=== PATIENT | male | born 1990 | race Hispanic/Latino ===

== ENCOUNTER 2016-08-08 14:11 | Inpatient (IN) | payer MEDICAID ==
[2016-08-08] MEDS ORDERED: Tmp-Smz 800 mg-160 mg DS Tab PO STA (14:24)
--- NOTE | 2016-08-08 14:34 | ED PDOC ---
Arrival/HPI <Fidel Boateng - Last Filed: 08/09/16 05:01> - General Historian: Patient <Elroy Maurer - Last Filed: 08/10/16 15:22> - General Chief Complaint: Psychiatric Evaluation Time Seen by Provider: 08/08/16 14:15 - History of Present Illness Narrative History of Present Illness (Text): 08/08/16 14:27 25 y/o male, no significant pmh, psychiatric history of drug abuse, last tetanus under 2 days ago, c/o depression or suicidal ideation x 1 week. Pt. has been feeling depressed and sad for the past 1 week, feeling suicidal which he cut his wrist yesterday and he was seen at the [facility] as he didn't complete the treatment, eloped from the ER, wants to continue the care at the [facility]. Pt. has no dizziness, no chest pain, no shortness of breath, no numbness or tingling, no difficulty moving the lt. hand/wrist/fingers, no other medical or psychological complaints. (Elroy Maurer) Past Medical History - Provider Review Nursing Documentation Reviewed: Yes - Psychiatric Hx Bipolar Disorder: Yes Hx Substance Use: (OXYCODONE, HEROINE, BENZODIAZIPINES) <Elroy Maurer - Last Filed: 08/10/16 15:22> Family/Social History - Physician Review Nursing Documentation Reviewed: Yes Family/Social History: Unknown Family HX Smoking Status: Heavy Smoker > 10 Cigarettes Daily Hx Alcohol Use: No Hx Substance Use: (OXYCODONE, HEROINE, BENZODIAZIPINES) <Elroy Maurer - Last Filed: 08/10/16 15:22> Allergies/Home Meds <Fidel Boateng - Last Filed: 08/09/16 05:01> <Elroy Maurer - Last Filed: 08/10/16 15:22> Allergies/Adverse Reactions: Allergies No Known Allergies Allergy (Verified 08/09/16 08:23) Home Medications: Home Meds Medication Instructions Recorded Confirmed No Known Home Med 08/08/16 08/09/16 Review of Systems - Review of Systems Constitutional: absent: Fatigue, Fevers Eyes: absent: Vision Changes ENT: absent: Hearing Changes Respiratory: absent: SOB, Cough Cardiovascular: absent: Chest Pain Gastrointestinal: absent: Abdominal Pain, Diarrhea, Nausea, Vomiting Skin: Laceration (Lt. wrist visible laceration). absent: Rash, Pruritis, Skin Lesions, Abscess, Ulcer, Cellulitis Neurological: absent: Headache, Dizziness, Focal Weakness, Gait Changes <Elroy Maurer - Last Filed: 08/10/16 15:22> Physical Exam Vital Signs Reviewed: Yes Temperature: Afebrile Blood Pressure: Normal Pulse: Regular Respiratory Rate: Normal Appearance: Positive for: Well-Appearing, Non-Toxic, Comfortable Pain Distress: None Mental Status: Positive for: Alert and Oriented X 3 - Systems Exam Head: Present: Atraumatic, Normocephalic Pupils: Present: PERRL Extroacular Muscles: Present: EOMI Conjunctiva: Present: Normal Mouth: Present: Moist Mucous Membranes Neck: Present: Normal Range of Motion Respiratory/Chest: Present: Clear to Auscultation, Good Air Exchange. No: Respiratory Distress, Accessory Muscle Use Cardiovascular: Present: Regular Rate and Rhythm, Normal S1, S2. No: Murmurs Abdomen: Present: Normal Bowel Sounds. No: Tenderness, Distention, Peritoneal Signs Back: Present: Normal Inspection Upper Extremity: Present: Normal Inspection. No: Cyanosis, Edema Lower Extremity: Present: Normal Inspection. No: Edema Neurological: Present: GCS=15, Speech Normal. No: Motor Func Grossly Intact, Gait Normal, Memory Normal Skin: Present: Warm, Dry, Rashes (Lt. wrist region visible approx. 3cm healed wound with 7 ruby, lt. hand dorsum visible needle garcia from IV drug abuse but no signs of infection. ), Normal Color Psychiatric: Present: Alert, Oriented x 3, Normal Insight, Normal Concentration <Elroy Maurer - Last Filed: 08/10/16 15:22> Vital Signs Temp Pulse Resp BP Pulse Ox 08/09/16 03:29 98.1 F 67 17 113/74 98 08/08/16 14:15 98.6 F 87 16 124/84 99 08/08/16 14:12 98.6 F 87 16 124/84 99 Medical Decision Making <Fidel Boateng - Last Filed: 08/09/16 05:01> - Lab Interpretations I have reviewed the lab results: Yes Interpretation: Abnormal lab values (+drug abuse) - RAD Interpretation Power Bender Operator: Radiologist - EKG Interpretation Interpreted by ED Physician: Yes Type: 12 lead EKG Comparison: No previous EKG avail. <Elroy Maurer - Last Filed: 08/10/16 15:22> ED Course and Treatment: 08/09/16 05:01 Pt re-evaluated by PES screener, pt agrees to sign for admission to [facility] psychiatric floor. Pt will be admitted for bipolar disorder under Dr. Alonzo's service. (Fidel Boateng) 08/08/16 14:25 -Labs/ua/uds -ekg/chest x-ray -keflex and bactrim ds ordered for the patient for the stapled year -wound irrigated with normal saline, clean with betadine, bacitracin and gauze dressing, elliot, wound check and dressing change performed by me. -One on one -PES paged and aware of the patient pending for their evaluation. 08/08/16 17:32 -NSR @ 83 BPM, no ST elevation or depression, no T wave inversion, compared with previous ekg. -Chest xray show no active disease -Labs show no acute findings -UA show no UTI -UDS show +papo/+cocaine/+methadone -Pt. is medically clear and stable for the PES evaluation 08/08/16 19:35 -Pt. evaluated by the [facility], spoke to psychiatrist diagnostic cardiac sonographer Dr. Tanisha Miller. Pt. refused to sign in and to accept the full psychiatric care, not stable to be discharge home yet due to he needs to be screened by the [facility] PES. All paper works faxed by [facility] Rondon to the [facility] 08/08/16 20:55 -Case sign out to the incoming ER attending Dr. Boateng and we discussed about the case together, he will follow up the transfer to the [facility] (Elroy Maurer) - Lab Interpretations Lab Results: 08/08/16 14:00 08/08/16 14:00 Lab Results 08/08/16 16:10: Urine Opiates Screen Positive H, Urine Methadone Screen Positive H, Ur Barbiturates Screen Negative, Ur Phencyclidine Scrn Negative, Ur Amphetamines Screen Negative, U Benzodiazepines Scrn Positive H, U Oth Cocaine Metabols Positive H, U Cannabinoids Screen Negative 08/08/16 16:10: Urine Color Light yellow, Urine Appearance Clear, Urine pH 6.5, Ur Specific [place] 1.010, Urine Protein Negative, Urine Glucose (UA) Negative, Urine Ketones Negative, Urine Blood Negative, Urine Nitrate Negative, Urine Bilirubin Negative, Urine Urobilinogen 0.2, Ur Leukocyte Esterase Negative 08/08/16 14:00: Alcohol, Quantitative < 10 08/08/16 14:00: Salicylates < 1 L, Acetaminophen < 10.0 L 08/08/16 14:00: Sodium 139, Potassium 4.1, Chloride 104, Carbon Dioxide 27, Anion Gap 12, BUN 9, Creatinine 0.7, Est GFR ( Amer) > 60, Est GFR (Non- Af Amer) > 60, Random Glucose 94, Calcium 8.9, Total Bilirubin 0.3, AST 46, ALT 49, Alkaline Phosphatase 116, Total Protein 7.2, Albumin 3.7, Globulin 3.5, Albumin/Globulin Ratio 1.1 08/08/16 14:00: WBC 8.8, RBC 4.22, Hgb 14.6, Hct 42.0, MCV 99.5, MCH 34.6, MCHC 34.8, RDW 11.8, Plt Count 174, MPV 10.0, Gran % 59.5, Lymph % (Auto) 23.5, Branch % (Auto) 10.4 H, Eos % (Auto) 6.3 H, Baso % (Auto) 0.3, Gran # 5.23, Lymph # 2.1 , Branch # 0.9 H, Eos # 0.6, Baso # 0.03 - RAD Interpretation Radiology Orders: 08/08/16 14:23 CHEST PORTABLE [RAD] Stat no active disease (Elroy Maurer) - EKG Interpretation EKG Interpretation (Text): 08/08/16 14:42 NSR @ 83 BPM, no ST elevation or depression, no T wave inversion, compared with previous ekg. (Elroy Maurer) - Medication Orders Current Medication Orders: Discontinued Medications Acetaminophen (Tylenol 325mg Tab) 650 mg PO Q4H PRN PRN Reason: Pain, Mild (1-3) Al Hydrox/Mg Hydrox/Simethicone (Maalox Plus 30 Ml) 30 ml PO DAILY PRN PRN Reason: Upset Stomach Cephalexin Monohydrate (Keflex) 500 mg PO STAT STA PRN Reason: Protocol Stop: 08/08/16 14:24 Last Admin: 08/08/16 14:58 Dose: 500 mg Magnesium Hydroxide (Milk Of Magnesia) 30 ml PO DAILY PRN PRN Reason: Constipation Trimethoprim/Sulfamethoxazole (Bactrim Ds Tab) 1 tab PO STAT STA PRN Reason: Protocol Stop: 08/08/16 14:25 Last Admin: 08/08/16 14:58 Dose: 1 tab Ziprasidone (Geodon Inj) 20 mg IM Q6H PRN; Protocol PRN Reason: Agitation - PA / SOLID PLASTERER / Resident Statement GIANLUCA has reviewed & agrees with the documentation as recorded. GIANLUCA has examined the patient and agrees with the treatment plan. <Fidel Boateng - Last Filed: 08/09/16 05:01> - PA / SOLID PLASTERER / Resident Statement GIANLUCA has reviewed & agrees with the documentation as recorded. <Elroy Maurer - Last Filed: 08/10/16 15:22> Disposition/Present on Arrival - Present on Arrival Any Indicators Present on Arrival: No History of DVT/PE: No History of Uncontrolled Diabetes: No Urinary Catheter: No History of Decub. Ulcer: No History Surgical Site Infection Following: None - Disposition Have Diagnosis and Disposition been Completed?: Yes Disposition Time: 05:00 Patient Plan: Admission <Fidel Boateng - Last Filed: 08/09/16 05:01> - Present on Arrival Any Indicators Present on Arrival: No History of DVT/PE: No History of Uncontrolled Diabetes: No Urinary Catheter: No History of Decub. Ulcer: No History Surgical Site Infection Following: None - Disposition Have Diagnosis and Disposition been Completed?: Yes Disposition Time: 17:32 <Elroy Maurer - Last Filed: 08/10/16 15:22> - Disposition Diagnosis: Wrist laceration, Drug abuse, Suicidal ideation, Agitation, Bipolar disorder Disposition: HOSPITALIZED Condition: GOOD
--- NOTE | 2016-08-08 14:57 | RAD ---
HISTORY: medical clearance COMPARISON: No prior. FINDINGS: LUNGS: No active pulmonary disease. Exam rotated toward the right previous in a prominent anterior right 1st rib seen on end over the right upper lung zone. No suspect pulmonary infiltrate PLEURA: No significant pleural effusion identified, no pneumothorax apparent. CARDIOVASCULAR: Normal. OSSEOUS STRUCTURES: No significant abnormalities. VISUALIZED UPPER ABDOMEN: Normal. OTHER FINDINGS: None. IMPRESSION: No active disease.
[2016-08-08 15:50] LABS: ADD MANUAL DIFF? NO
[2016-08-08 15:56] LABS: BASO # 0.03 K/mm3 (0.0-2.0); BASO % 0.3 % (0.0-3.0); EOS # 0.6 (0.0-0.7); EOS % 6.3 % (1.5-5.0); GRAN # 5.23 (1.4-6.5); GRAN % 59.5 % (50.0-68.0); LYMPH # 2.1 (1.2-3.4); LYMPH % 23.5 % (22.0-35.0); MEAN CELL VOLUME 99.5 fL (80.0-105.0); MEAN CORPUSCULAR HEMOGLOBIN 34.6 pg (25.0-35.0); MEAN CORPUSCULAR HGB CONC 34.8 g/dl (31.0-37.0); MONO # 0.9 (0.1-0.6); MONO % 10.4 % (1.0-6.0); PLATELET COUNT 174 10^3/uL (120.0-450.0); RED CELL DISTRIBUTION WIDTH 11.8 % (11.5-14.5); WHITE BLOOD COUNT 8.8 10^3/ul (4.5-11.0)
[2016-08-08 16:18] LABS: ALB/GLOB RATIO 1.1 (1.1-1.8); ALKALINE PHOSPHATASE 116 U/L (38-133); ALT/SGPT 49 U/L (7-56); AST/SGOT 46 U/L (15-59); BILIRUBIN,TOTAL 0.3 mg/dL (0.2-1.3); BLOOD UREA NITROGEN 9 mg/dL (7-21); CALCIUM 8.9 mg/dL (8.4-10.5); CARBON DIOXIDE 27 mmol/L (21-33); CHLORIDE 104 mmol/L (98-107); GFR AFRICAN-AMERICAN > 60; GLUCOSE,RANDOM 94 mg/dL (70-110); POTASSIUM 4.1 mmol/L (3.6-5.0); SODIUM 139 mmol/L (132-148); TOTAL PROTEIN 7.2 g/dL (5.8-8.3)
[2016-08-08 16:31] LABS: PH,URINE 6.5 (4.7-8.0); URINE BILIRUBIN NEGATIVE (NEGATIVE); URINE BLOOD NEGATIVE (NEGATIVE); URINE GLUCOSE (UA) NEGATIVE (NEGATIVE); URINE KETONE NEGATIVE (NEGATIVE); URINE LEUKOCYTE ESTERASE NEGATIVE Leu/uL (NEGATIVE); URINE PROTEIN NEGATIVE mg/dL (<30 mg/dL); URINE UROBILINOGEN 0.2 E.U./dL (<1 E.U./dL)
[2016-08-08 16:34] LABS: URINE APPEARANCE CLEAR (CLEAR); URINE COLOR LIGHT YELLOW (YELLOW)
[2016-08-09 03:30] VITALS: TEMP 98.1; O2SAT 98
[2016-08-09] MEDS ORDERED: Alum-Mag Hydrox-Simethicone Susp (30 mL) PO PRN (05:40)
[2016-08-09] MEDS ORDERED: Magnesium Hydroxide Susp 30 ml UD PO PRN (05:40)
[2016-08-09 06:44] VITALS: BP 119/69; PULSE 63; RESP 20
--- NOTE | 2016-08-09 12:39 | CON ---
DATE: 08/09/2016 HISTORY OF PRESENT ILLNESS: I saw the patient on the psychiatric floor. He is here because he had s ome issues of drug abuse and some question of being bipolar, but I do not think that is true. He tel ls me that he does not want to go to skilled nursing and he cut his wrists, on the left wrist gently so that the y would take him to the hospital. Otherwise, he would have had to go to skilled nursing 3-1/2 years because he was supposed to be on no drugs and he was going to have a positive test and he knew that, so he did t his to get to the psych floor so he did not have to go to skilled nursing with the police. He is a 25-year-old man with history of drug abuse. He is supposed to be in a rehab situation. He faked depression and suicide situation with cutting his left wrist gently to avoid being caught from doing drugs and now niles tate is in the psychiatric floor at [facility] where he already signed a 48. SOCIAL HISTORY: He has a history of oxycodone, heroin, benzodiazepine abuse, cocaine. He still smok es. He denies alcohol at this time. ALLERGIES: No known drug allergies. MEDICATIONS: Does not take any medications. FAMILY HISTORY: Does not know family history. PAST SURGICAL HISTORY: He had his tonsils out. REVIEW OF SYSTEMS: No vision changes, no hearing changes, no headaches, no dizziness. No sore throa t. No neck pain, no shortness of breath, no cough, no congestion, no cold, no chest pain, no palpita tions, no problems in his chest. No abdominal pain, nausea, vomiting, constipation or diarrhea. No edema of the legs. He can move all 4 extremities. No headache, no dizziness, no focal weakness. No gait problems. Does have left wrist visual laceration, it is small, does not look infected. PHYSICAL EXAMINATION: VITAL SIGNS: He has a 98.1 temp, 63 pulse, 119/69 blood pressure, 20 respiratory rate, 98% O2 sat on room air. HEENT: Head is atraumatic, normocephalic. Extraocular muscles are intact. Pupils equal, reactive t o light. Throat is moist, no erythema. NECK: Supple, no JVD. HEART: Regular rate. LUNGS: Have decreased breath sounds, but clear to auscultation. No rhonchi, wheezes or rales. ABDOMEN: Soft, nontender, positive bowel sounds. EXTREMITIES: Have no edema. NEUROLOGIC: He is alert and oriented x 3. GCS is 15. Speech is normal. Cranial nerves II-XII sofy sly intact. He moves all 4 extremities. He can follow my finger in an H sign with his vision. He c an look up, look down, he can close his eyes tight. He could smile, stick out his tongue midline. N o appreciable neurological issues at this time. There is a left wrist 3 cm laceration with ruby in place where he attempted to commit suicide, cadence ch he said he did that just so he would not have to go to skilled nursing. There are IV drug garcia on his arms. Nonpalpable lymphadenopathy appreciated. Thyroid is midline. LABORATORY DATA: He has a urine drug screen positive for opiates, positive for methadone, positive f or benzodiazepines, positive for cocaine. Urine itself is clean. He has a 139 sodium, potassium is 4.1, BUN 9, creatinine 0.7, GFR is greater than 60, sugar is 94, calcium is 8.9, total bili is 0.3, A ST is 46, ALT is 49, alk phos 116, total protein 7.2, albumin 3.7, globulin 3.5. White count is 8.8, hemoglobin 14.6, hematocrit 42, platelets are 174. He had a chest x-ray, which showed no acute dise ase. He is on the psychiatric floor for drug abuse, questionable bipolar versus trying to avoid going to [facility]. He signed a 48 hour. Medically I will follow him. He has got left wrist laceration. I discus sed not doing drugs anymore, so he could have a nice life. He looked at me like it was the first viviana e he heard it. Hopefully he will do well, as per psychiatry, we will follow this patient. Jerry Johnson DO cc: [id number] TT: 08/09/2016 12:38:33 Confirmation # [id number] Dictation # [id number] luis alfredo
--- NOTE | 2016-08-09 15:17 | PCM.PSYCH ---
Initial Psychiatric Evaluation - Initial Psychiatric Evaluation Type of Admission: Voluntary Legal Status: Capacity (patient has capacity to sign concent for tx.) Chief Complaint (in patient's own words): "I wanted to avoid incarceration....." Patient's Reaction to Hospitalization: pt was admitted for evaluation of depressive symptoms and possible suicidal ideation. History of Present Illness and Precipitating Events: shortly pt is 25yo male, no previous psych h/o, pt is under probation for weapon (pt did not want to disclose it), h/o polysubstance abuse and dependence. pt brought himself to [facility], looking for admission. initially pt presented to be "suicidal". pt [place] [facility] was found to be not committable, pt decided to sign into psych unit here in [place], as soon pt got to the floor, submitted 48hr notice. pt was seen with medical student, medical laboratory technologist, ANDREA, this teletypewriter installer. pt presented to be calm, cooperative, socially appropriate. Pt has antisocial traits, but was very honest about the circumstanses of his admission. pt said he is under probation for 18months for possessing a weapon (did not want to disclose details), pt said [facility], pt was released under probation, currently his UDS checked randomly but as per Court pt has to be clean and sober in order to be not incarcerated again. Pt said he was sober for 10months, but relapsed on drugs on this 08/06/16, I google how to cut my wrist, I checked where my arteries are in order to avoid it", pt has longitudinal cut (about 4cm) scar with about 7 ruby which was done in [facility] [place]. as per report "pt eloped from the [facility]", but as per pt "it took so long for them to evaluate me, I decided to leave, they came and I signed AMA paper" (pt did not eloped). pt said that his mother checked voicemails and now pt will have a new senior major gifts officer, pt also got to know that next UDS will be checked next Saturday, "I feel happy about it, most likely my urine will be clean". pt also made statement "if I would know that all I need to say that I am suicidal and not act like one, I will defiantly do so, I did not want to , I just wanted to be admitted and not to be sentenced in [facility]...". Pt has strong antisocial traits and not realizing that he is using system and he is a liar. pt denied being depressed, denied thoughts of harming self or others. pt reported to have good appetite and sleep. pt denied feeling anxious. pt has h/o addiction to the pain killers, using heroin IV and snorting, pt also has addiction to benzos. last use was saturday. Pt has sobriety for 10months, relapsed on drugs this Saturday. pt was going to [facility] addiction program, was graduated to once a week program, was on IM vivitrol but due to his insurance issues, was not able to have it. pt gave permission to speak to his mother, see SW note for more detailed info. Pt's mother said that pt did not verbalized thoughts of harming self or others, as per mother pt is safe to be discharged. mother also reported that pt wanted to be admitted in order to avoid incarceration. pt submitted 48hr notice. pt does not want to be on meds. pt will be d/c ama. family h/o: pt's cousin hang himself pt smokes abut a pack a day. counseling provided. as per medical team pt needs to come back in two weeks to remove ruby. 08/08/16 14:00 08/08/16 14:00 Lab Results 08/09/16 08:30: TSH 3rd Generation 1.36 08/09/16 08:30: Fasting Glucose 90 08/08/16 16:10: Urine Opiates Screen Positive H, Urine Methadone Screen Positive H, Ur Barbiturates Screen Negative, Ur Phencyclidine Scrn Negative, Ur Amphetamines Screen Negative, U Benzodiazepines Scrn Positive H, U Oth Cocaine Metabols Positive H, U Cannabinoids Screen Negative 08/08/16 16:10: Urine Color Light yellow, Urine Appearance Clear, Urine pH 6.5, Ur Specific [place] 1.010, Urine Protein Negative, Urine Glucose (UA) Negative, Urine Ketones Negative, Urine Blood Negative, Urine Nitrate Negative, Urine Bilirubin Negative, Urine Urobilinogen 0.2, Ur Leukocyte Esterase Negative 08/08/16 14:00: Alcohol, Quantitative < 10 08/08/16 14:00: Salicylates < 1 L, Acetaminophen < 10.0 L 08/08/16 14:00: Sodium 139, Potassium 4.1, Chloride 104, Carbon Dioxide 27, Anion Gap 12, BUN 9, Creatinine 0.7, Est GFR ( Amer) > 60, Est GFR (Non- Af Amer) > 60, Random Glucose 94, Calcium 8.9, Total Bilirubin 0.3, AST 46, ALT 49, Alkaline Phosphatase 116, Total Protein 7.2, Albumin 3.7, Globulin 3.5, Albumin/Globulin Ratio 1.1 08/08/16 14:00: WBC 8.8, RBC 4.22, Hgb 14.6, Hct 42.0, MCV 99.5, MCH 34.6, MCHC 34.8, RDW 11.8, Plt Count 174, MPV 10.0, Gran % 59.5, Lymph % (Auto) 23.5, [place] % (Auto) 10.4 H, Eos % (Auto) 6.3 H, Baso % (Auto) 0.3, Gran # 5.23, Lymph # 2.1 , [place] # 0.9 H, Eos # 0.6, Baso # 0.03 Vital Signs Temp Pulse Resp BP Pulse Ox 08/09/16 07:53 98.1 F 63 20 119/69 08/09/16 06:43 98.1 F 63 20 119/69 08/09/16 03:29 98.1 F 67 17 113/74 98 08/08/16 14:15 98.6 F 87 16 124/84 99 08/08/16 14:12 98.6 F 87 16 124/84 99 Current Medications: Active Medications Generic Name Dose Route Start Last Admin Trade Name Freq PRN Reason Stop Dose Admin Acetaminophen 650 mg 08/09/16 05:40 Tylenol 325mg Tab PO Q4H PRN Pain, Mild (1-3) Al Hydrox/Mg Hydrox/Simethicone 30 ml 08/09/16 05:40 Maalox Plus 30 Ml PO DAILY PRN Upset Stomach Magnesium Hydroxide 30 ml 08/09/16 05:40 Milk Of Magnesia PO DAILY PRN Constipation Ziprasidone 20 mg 08/09/16 09:19 Geodon Inj IM Q6H PRN Agitation Protocol Past Psychiatric History - Past Psychiatric History Previous Treatment History: None Prior Professional Help: see HPI Prior Psychiatric Treatment: see HPI At what hospital: see HPI Duration: see HPI Nature of Treatment: see HPI Explanation of prior treatment: see HPI History of Abuse: see HPI History of ETOH/Drug Use: see HPI History of Family Illness: see HPI Pertinent Medical Hx (Current Medical&Sleep Prob, Allergies): Allergies Allergy/AdvReac Type Severity Reaction Status Date / Time No Known Allergies Allergy Verified 08/09/16 08:23 No Known Home Med 08/08/16 Review of Systems - Review of Systems Systems not reviewed;Unavailable: Acuity of Condition - EENT Eyes: As Per HPI Ears: As Per HPI Nose/Mouth/Throat: As Per HPI - Cardiovascular Cardiovascular: As Per HPI - Respiratory Respiratory: As Per HPI - Gastrointestinal Gastrointestinal: As Per HPI - Genitourinary Genitourinary: As Per HPI - Reproductive: Male Reproductive:Male: As Per HPI - Musculoskeletal Musculoskeletal: As Par HPI - Integumentary Integumentary: As Per HPI - Neurological Neurological: As Per HPI - Psychiatric Psychiatric: As Per HPI - Endocrine Endocrine: As Per HPI - Hematologic/Lymphatic Hematologic: As Per HPI Mental Status Examination - Personal Presentation Personal Presentation: Looks stated age - Affect Affect: Constricted - Motor Activity Motor Activity: Calm - Reliability in Providing Information Reliability in Providing Information: Fair - Speech Speech: Organized - Mood Mood: Neutral - Formal Thought Process Formal Thought Process: No Impairment - Obsessions/Compulsions Obsessions: None Compulsions: None - Cognitive Functions Orientation: Person, Place, Situation, Time Sensorium: Alert Attention/Concentration: Attentive Abstract Thinking: As evidence by literal perception of proverbs Estimate of Intelligence: Average Judgement: Intact, as evidence by: Insight regarding need for hospitalization - Risk Risk: Diminished functioning - Strength & Assets Inventory Strength & Assets Inventory: Intelligence, Family support, Cooperative - Limitations Limitations: Other (strong antisocial traits. ) DSM 5 DX - DSM 5 DSM 5 Diagnosis: antisocial personality disorder polysubstance abuse and dependence - Recommended/Plan of Treatment Treatment Recommendations and Plan of Treatment: pt submitted 48hr notice pt was [place] [facility] pt does not want to be on meds collaterals obtained pt wants to be f/u with [facility] pt is on probation, was advised to call her pt will be d/c AMA pt's mother will pick pt up at 2:30 Projected ELOS: 7days Prognosis: fair Discharge Plan and Discharge Criteria: pt will be d/c AMA - Smoking Cessation Smoking Cessation Initiated: Yes
--- NOTE | 2016-08-09 23:28 | CARD ---
APPROVED REPORT EKG Measurement Heart [id number] <Conclusion> Normal sinus rhythm Normal ECG
--- NOTE | 2016-08-10 10:18 | PCM.PYCHDC ---
Mental Status Examination - Mental Status Examination Orientation: Person, Place, Situation, Time Memory: Intact Mood: Neutral Affect: Constricted (but reactive, mood congruent) Speech: Appropriate Attention: WNL Concentration: WNL Language: Word Retrieval Association: WNL Fund of Knowledge: WNL Formal Thought Process: No Impairment Description of patient's judgement and insight: Pt has strong antisocial traits, was providing innacurate information, obviously had secondary gain from this admission, pt did not want to be in [facility]. pt was compliant with unit rules and regulations, pt was going to groups, was calm, cooperative, socially appropriate, no behavioral incidents, no agitation, no aggression. Psychotic Thoughts and Behaviors: Pt denied v/a/t hallucinations, denied paranoid ideations, pt does not appear to be psychotic, and thought process is goal directed. Suicidal Ideation: No Current Homicidal Ideation?: No Plan: pt adamantly denied thoughts of harming self or others denied intent or plan. Discharge Summary - Discharge Note Reason for Hospitalization: pt was admitted for evaluation of depressive symptoms and possible suicidal ideation. self mutilating behavior in order to be admitted to the hospital and avoid incarceration. Psychiatric History (includes Medical, Family, Personal Hx): see HPI Laboratory Data: Abnormal Lab Results 08/09/16 08:30 RPR Nonreactive Consultations:: List each consultation separately and include: 1. Reason for request. 2. Findings. 3. Follow-up Consultations: medical consult appreciated Summary of Hospital Course include:: 1. Description of specific treatment plan utilized for patients during their course of treatmen. 2. Summarize the time- course for resolution of acute symptoms and/or regressed behaviors. 3. Describe issues identified and worked on during hospitalization. 4. Describe medication utilized. 5. Describe medical problems identified and treated. 6. Reassessment of suicide risk Summary of Hospital Course: shortly pt is 25yo male, no previous psych h/o, pt is under probation for weapon (pt did not want to disclose it), h/o polysubstance abuse and dependence. pt brought himself to [facility], looking for admission. initially pt presented to be "suicidal". pt was screened by [facility], was found to be not committable, pt decided to sign into psych unit here in [place], as soon pt got to the floor, submitted 48hr notice. pt was seen with medical student, electromedical equipment repairer, ANDREA, this remote mortgage underwriter. pt presented to be calm, cooperative, socially appropriate. Pt has antisocial traits, but was very honest about the circumstanses of his admission. pt said he is under probation for 18months for possessing a weapon (did not want to disclose details), pt said he was [facility] in [facility], pt was released under probation, currently his UDS checked randomly but as per Court pt has to be clean and sober in order to be not incarcerated again. Pt said he was sober for 10months, but relapsed on drugs on this 08/06/16, I google how to cut my wrist, I checked where my arteries are in order to avoid it", pt has longitudinal cut (about 4cm) scar with about 7 ruby which was done in [facility] on Saturday. as per report "pt eloped from the [facility]", but as per pt "it took so long for them to evaluate me, I decided to leave, they came and I signed AMA paper" (pt did not eloped). 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 pt also made statement "if I would know that all I need to say that I am suicidal and not act like one, I will defiantly do so, I did not want to , I just wanted to be admitted and not to be sentenced in [facility]...". Pt has strong antisocial traits and not realizing that he is using system and he is a liar. pt denied being depressed, denied thoughts of harming self or others. pt reported to have good appetite and sleep. pt denied feeling anxious. pt has h/o addiction to the pain killers, using heroin IV and snorting, pt also has addiction to benzos. last use was saturday. Pt has sobriety for 10months, relapsed on drugs this Saturday. pt was going to [facility] addiction program, was graduated to once a week program, was on IM vivitrol but due to his insurance issues, was not able to have it. pt gave permission to speak to his mother, see SW note for more detailed info. Pt's mother said that pt did not verbalized thoughts of harming self or others, as per mother pt is safe to be discharged. mother also reported that pt wanted to be admitted in order to avoid incarceration. pt submitted 48hr notice. pt does not want to be on meds. pt will be d/c ama. family h/o: pt's cousin hang himself pt smokes abut a pack a day. counseling provided. as per medical team pt needs to come back in two weeks to remove ruby. 08/08/16 14:00 08/08/16 14:00 Lab Results 08/09/16 08:30: TSH 3rd Generation 1.36 08/09/16 08:30: Fasting Glucose 90 08/08/16 16:10: Urine Opiates Screen Positive H, Urine Methadone Screen Positive H, Ur Barbiturates Screen Negative, Ur Phencyclidine Scrn Negative, Ur Amphetamines Screen Negative, U Benzodiazepines Scrn Positive H, U Oth Cocaine Metabols Positive H, U Cannabinoids Screen Negative 08/08/16 16:10: Urine Color Light yellow, Urine Appearance Clear, Urine pH 6.5, Ur Specific Bowie 1.010, Urine Protein Negative, Urine Glucose (UA) Negative, Urine Ketones Negative, Urine Blood Negative, Urine Nitrate Negative, Urine Bilirubin Negative, Urine Urobilinogen 0.2, Ur Leukocyte Esterase Negative 08/08/16 14:00: Alcohol, Quantitative < 10 08/08/16 14:00: Salicylates < 1 L, Acetaminophen < 10.0 L 08/08/16 14:00: Sodium 139, Potassium 4.1, Chloride 104, Carbon Dioxide 27, Anion Gap 12, BUN 9, Creatinine 0.7, Est GFR ( Amer) > 60, Est GFR (Non- Af Amer) > 60, Random Glucose 94, Calcium 8.9, Total Bilirubin 0.3, AST 46, ALT 49, Alkaline Phosphatase 116, Total Protein 7.2, Albumin 3.7, Globulin 3.5, Albumin/Globulin Ratio 1.1 08/08/16 14:00: WBC 8.8, RBC 4.22, Hgb 14.6, Hct 42.0, MCV 99.5, MCH 34.6, MCHC 34.8, RDW 11.8, Plt Count 174, MPV 10.0, Gran % 59.5, Lymph % (Auto) 23.5, Barton % (Auto) 10.4 H, Eos % (Auto) 6.3 H, Baso % (Auto) 0.3, Gran # 5.23, Lymph # 2.1 , Barton # 0.9 H, Eos # 0.6, Baso # 0.03 Vital Signs Temp Pulse Resp BP Pulse Ox 08/09/16 07:53 98.1 F 63 20 119/69 08/09/16 06:43 98.1 F 63 20 119/69 08/09/16 03:29 98.1 F 67 17 113/74 98 08/08/16 14:15 98.6 F 87 16 124/84 99 08/08/16 14:12 98.6 F 87 16 124/84 99 pt submitted 48hr notice pt was screened by [facility] from ED, was not accepted collaterals obtained from mother pt will be f/u at [facility], IOP recommended pt will be signed AMA, pt has capacity to do so. At the time of the discharge pt denied been depressed, denied thoughts of harming self or others, denied psychotic symptoms, and pt does not appeared to be psychotic, denied been anxious, was considered to pose no threat to self or others, will be following up at [facility] addiction [facility], information about follow up appointment, time and address provided to the pt, it is patient responsibility to follow up with outpatient clinic, PMD as well as specialists ( see note for more detailed information). In case pt will need to obtain results of studies pending at discharge pt was provided with contact information of Psychiatric Inpatient unit [phone] as well as Medical Record Department [phone]. Nicotine patch was offered Counseling about smoking and alcohol cessation provided AA meetings as well as [facility] smoking cessation treatment program information was provided by the pt does not want to be on meds pt will be d/c AMA Pt was educated about safety plan in case of worsening of symptoms or in case of suicidal or homicidal ideation call 911 or go to the nearest ER, also was educated to take meds as prescribed and stay away from drugs, pt verbalized understanding. - Diagnosis (1) Antisocial personality disorder Status: Acute (2) Polysubstance abuse Status: Acute - Final Diagnosis (DSM 5) Condition upon Discharge: GOOD Disposition: AGAINST MEDICAL ADVICE Follow-up Treatment Plan: At the time of the discharge pt denied been depressed, denied thoughts of harming self or others, denied psychotic symptoms, and pt does not appeared to be psychotic, denied been anxious, was considered to pose no threat to self or others, will be following up at [facility] addiction [facility], information about follow up appointment, time and address provided to the pt, it is patient responsibility to follow up with outpatient clinic, PMD as well as specialists ( see note for more detailed information). In case pt will need to obtain results of studies pending at discharge pt was provided with contact information of Psychiatric Inpatient unit [phone] as well as Medical Record Department [phone]. Nicotine patch was offered Counseling about smoking and alcohol cessation provided AA meetings as well as [facility] smoking cessation treatment program information was provided by the pt does not want to be on meds pt will be d/c AMA Pt was educated about safety plan in case of worsening of symptoms or in case of suicidal or homicidal ideation call 911 or go to the nearest ER, also was educated to take meds as prescribed and stay away from drugs, pt verbalized understanding. - Smoking Cessation Smoking Cessation Medication prescribed: Yes - Antipsychotic Medications Pt discharged on 2 or more routine antipsychotic medications: No
== END 2016-08-09 15:06 | disposition left against medical advice (07) | DRG 428 ==
LOC: ED 14:11 → ERH 08-09 05:01 → PSYC 08-09 06:31
PROVIDERS: ADMIT Psychiatry & Neurology Psychiatry; ATTEND Psychiatry & Neurology Psychiatry
PROC: GZ3ZZZZ Medication Management (ICD-10-PCS; principal; 2016-08-09)
DX: F60.2 Antisocial personality disorder (principal); F19.20 Other psychoactive substance dependence, uncomplicated; F17.210 Nicotine dependence, cigarettes, uncomplicated; Z91.5 Personal history of self-harm

== ENCOUNTER 2016-08-19 19:14 | Emergency (ER) | payer MEDICAID ==
[2016-08-19 19:34] VITALS: TEMP 98.9
--- NOTE | 2016-08-19 19:50 | ED PDOC ---
Arrival/HPI - General Historian: Patient - General Chief Complaint: Suture/Staple Removal Time Seen by Provider: 08/19/16 19:35 - History of Present Illness Narrative History of Present Illness (Text): 08/19/16 19:56 25-year-old male presents today for staple removal to the left wrist. Patient states about 10 days ago the patient cut his left wrist. Patient states he had 7 ruby placed. He denies any pain. Denies numbness weakness or tingling in the extremity. Denies fevers or chills. (Nela Todd) Past Medical History - Provider Review Nursing Documentation Reviewed: Yes - Travel History Have you recently traveled outside [place] w/in the past 3 mons?: No - Tetanus Immunization Tetanus Immunization: Up to Date - Cardiac Hx Cardiac Disorders: No Hx Hypertension: No - Pulmonary Hx Respiratory Disorders: No Hx Tuberculosis: No - Neurological Hx Neurological Disorder: No HX Cerebrovascular Accident: No Hx Seizures: No - HEENT Hx HEENT Disorder: No - Renal Hx Renal Disorder: No - Hematological/Oncological Hx Blood Disorders: No Hx Cancer: No - Integumentary Hx Dermatological Disorder: No - Musculoskeletal/Rheumatological Hx Musculoskeletal Disorders: No - Gastrointestinal Hx Gastrointestinal Disorders: No - Genitourinary/Gynecological Hx Genitourinary Disorders: No Hx Sexually Transmitted Diseases: No - Psychiatric Hx Bipolar Disorder: Yes Hx Substance Use: (OXYCODONE, HEROINE, BENZODIAZIPINES) - Surgical History Hx Tonsillectomy: Yes (14 YRS OLD) - Anesthesia Hx Anesthesia: Yes Hx Anesthesia Reactions: No Family/Social History - Physician Review Nursing Documentation Reviewed: Yes Family/Social History: Unknown Family HX Smoking Status: Heavy Smoker > 10 Cigarettes Daily Hx Alcohol Use: No Hx Substance Use: (OXYCODONE, HEROINE, BENZODIAZIPINES) Allergies/Home Meds Allergies/Adverse Reactions: Allergies No Known Allergies Allergy (Verified 08/19/16 19:27) Home Medications: Home Meds Medication Instructions Recorded Confirmed No Known Home Med 08/08/16 08/19/16 Review of Systems - Review of Systems Constitutional: absent: Fatigue, Fevers Respiratory: absent: SOB, Cough Cardiovascular: absent: Chest Pain, Palpitations Gastrointestinal: absent: Abdominal Pain, Vomiting Musculoskeletal: absent: Arthralgias Skin: Laceration (healed left wrist laceration) Physical Exam Vital Signs Reviewed: Yes Temperature: Afebrile Blood Pressure: Normal Pulse: Tachycardic Respiratory Rate: Normal Appearance: Positive for: Well-Appearing, Non-Toxic, Comfortable Pain Distress: None Mental Status: Positive for: Alert and Oriented X 3 - Systems Exam Head: Present: Atraumatic Respiratory/Chest: Present: Clear to Auscultation Cardiovascular: Present: Tachycardic Upper Extremity: Present: Normal ROM, NORMAL PULSES, Neurovascularly Intact, Capillary Refill < 2s, Other (left wrist; there is [address] over the volar aspect of the left wrist; no edema, no erythema; no ecchymosis; non tender. ). No: Tenderness, Swelling, Erythema, Deformity Neurological: Present: GCS=15 Skin: Present: Warm, Dry, Normal Color Psychiatric: Present: Alert, Oriented x 3 Vital Signs Temp Pulse Resp BP Pulse Ox 08/19/16 19:27 98.9 F 120 H 17 124/75 96 Medical Decision Making ED Course and Treatment: I was available for consultation during PA evaluation. The chart reviewed by me , and I agree with disposition. The documented history was done by the physician van cdl driver. The documented physical exam was done by the physician van cdl driver. The documented procedures were done by the physician van cdl driver. (Sravan Norman) Patient is nontoxic well-appearing in no distress. slightly tachycardic on initial vitals. staple removal 7 ruby removed Wound healing well without signs of infection I advised the patient to keep the wound clean and dry apply bacitracin twice daily and return if symptoms worsen persist or if new symptoms develop repeat hr; wnl Patient verbalizes understanding of discharge instructions and need for immediate followup. Impression: staple removal Keep the wound clean and dry Apply bacitracin twice daily Follow up with primary care physician within the next 2 days Return immediately if symptoms worsen persist or if new symptoms develop (Nela Todd) Disposition/Present on Arrival - Present on Arrival Any Indicators Present on Arrival: No History of DVT/PE: No History of Uncontrolled Diabetes: No Urinary Catheter: No History of Decub. Ulcer: No History Surgical Site Infection Following: None - Disposition Have Diagnosis and Disposition been Completed?: Yes Disposition Time: 19:49 Patient Plan: Discharge - Disposition Diagnosis: Removal of ruby Disposition: HOME/ ROUTINE Condition: GOOD Additional Instructions: Keep the wound clean and dry Apply bacitracin twice daily Follow up with primary care physician within the next 2 days Return immediately if symptoms worsen persist or if new symptoms develop Referrals: Jennifer Davidson MD [Staff Provider] - Follow up with primary
[2016-08-19 20:08] VITALS: BP 125/80; PULSE 91; RESP 16; O2SAT 99
== END 2016-08-19 20:08 | disposition home or self-care (01) ==
LOC: ED 19:14
DX: Z48.02 Encounter for removal of sutures (principal)